=== PATIENT | female | born 1960 | race Caucasian/White ===

== ENCOUNTER 2024-08-12 12:16 | Outpatient (CLI) | payer OTHER, SELFPAY ==
[2024-08-12 18:33] LABS: Basophils # 0.1 K/mm3 (0-0.2); Basophils % 1.5 % (0.1-2.0); Eosinophils # 0.1 Kmm3 (0.0-0.4); Eosinophils % 2.3 % (0.1-12.0); Hematocrit 47.2 % (37.0-47.0); Immature Granulocytes # 0.03 10^3uL; Immature Granulocytes % 0.6 %; Lymphocytes % 19.3 % (10-50); Mean Corpuscular HGB Conc 31.8 g/dL (31.8-35.4); Mean Corpuscular Volume 94.4 fl (81-99); Mean Platelet Volume 10.9 fl (7.4-10.4); Monocytes # 0.4 K/mm3 (0.1-1.0); Monocytes % 7.9 % (1.7-9.3); Neutrophils # 3.6 K/mm3 (1.8-7.8); Neutrophils % 68.4 % (37.0-80.0); Nucleated Red Blood Cells # 0 10^3/uL; Nucleated Red Blood Cells % 0 %; Platelet Count 231 K/mm3 (142-424); Red Cell Distribution Width 12.5 % (11.5-17.5); Red Cell Distribution Width-SD 43.7 fL; White Blood Count 5.2 K/mm3 (4.8-10.8)
[2024-08-12 19:43] LABS: Alanine Aminotransferase 35 U/L (12-78); Albumin Level 4.3 g/dl (3.5-5.0); Albumin/Globulin Ratio 1.5 (1.1-1.8); Alkaline Phosphatase 65 U/L (38-126); Anion Gap 8.5 mEq/L (5-15); Aspartate Amino Transferase 36 U/L (14-36); Blood Urea Nitrogen 11 mg/dl (7-17); Calcium 9.6 mg/dl (8.4-10.2); Carbon Dioxide 28 mmol/L (22.0-30.0); Chloride 108 mmol/L (98-107); Chol/HDL Ratio 6.7 (1-3.5); Cholesterol 315 mg/dl (140-200); Creatinine,Urine Random 41 mg/dL (Not Estab.); Estimated Glomerular Filt Rate 72 ml/min (>60); GFR (African American) 87 ML/MIN (>60); Globulin 2.8 g/dL (1.3-3.2); Glucose 118 mg/dl (74-100); HDL Cholesterol 47 mg/dl (40-60); Potassium 5.5 mmoL/L (3.5-5.1); Sodium 139 mmol/L (136-145); Total Protein,Serum 7.1 g/dl (6.3-8.2); Triglycerides 140 mg/dl (30-150); VLDL Cholesterol 28 mg/dL (0-40)
[2024-08-12 19:49] LABS: Microalbumin < 6.000 mg/L (0-16.7)
[2024-08-12 19:58] LABS: Free T4 (Free Thyroxine) 1.87 ng/dl (0.78-2.19)
[2024-08-12 20:01] LABS: Direct LDL Cholesterol 223.86 mg/dL (100-129)
[2024-08-12 20:08] LABS: 25-OH Vitamin D, Total 35.7 ng/mL (30-100)
[2024-08-12 20:21] LABS: Thyroid Stimulating Hormone 0.55 uIU/mL (0.465-4.68)
[2024-08-12 20:26] LABS: HIV Combo NEGATIVE (Negative)
[2024-08-12 20:34] LABS: Hepatitis C Ab Qual. W/ RFX NEGATIVE (Negative)
[2024-08-12 20:43] LABS: Vitamin B12 402 pg/mL (239-931)
[2024-08-12 21:07] LABS: Hemoglobin A1C 5.7 % (4.0-6.0)
--- OUTSIDE RECORDS SUMMARY | 2024-08-13 10:39 | XMS_ITS | Encounter Summary ---
Author Organization [place] [address] Care Team Providers Care Citrus Peeler Name Role Phone Ermelinda Petr Rashid Primary Care Provider + [phone] Ruth Haque MD Unavailable Unavailable Raza Rowe MD Primary Care Provider Unavaila Parisa Delacruz APRN Primary Care Provider [phone],LD Unavailable UnavailAliya Myers RN Unavailable Unavailable Encounter Details Date Type Department Care Team (Latest Contact Info) Description 09/06/2012 Pre-Imaging Procedure Adult Med [address] [place], [place] [id number] Sabine Pickering, MATTHEW Hepatitis (Primary Dx) Social History Tobacco Use Types Packs/Day Years Used Date Smoking Tobacco: Never Smokeless Tobacco: Never Alcohol Use Standard Drinks/Week Comments No 0 (1 standard drink = 0.6 oz pur e alcohol) occ Sexually Active Control Partners Comments Yes Male Comments No Sex and Gender Information Value Date Recorded Sex Assigned at Not on file Legal Sex Female 3:35 PM EDT Gender Identity Not on file Sexual Orientation Not on file documented as of this encounter Plan of Treatment Not on file documented as of this encounter Results * PT / INR (09/11/2012 6:45 AM EDT) PT 10.5 9.7 - 12.3 second(s) [facility] INR 0.95 0.88 - 1.12 [facility] Comment: Level of Therapy Indications Target INR Range Standard Dose Treatment and prophylaxis of venous 2.0 - 3.0 thrombosis, pulmonary embolism High Dose High risk patients with mechanical 2.5 - 3.5 heart valves Blood specimen (specimen) UPPER LIMB STRUCTURE / Unknown 09/11/2012 6:45 AM EDT 09/11/2012 7:04 AM EDT us Attblake Garcia MD HEMATOLOGY ORDERABLES Final R esult Performing Organization Address City/[facility] Co de Phone Number [facility] [address] [place] [address] * CBC (09/11/2012 6:45 AM EDT) [facility] WBC 5.5 3.8 - 10.8 x10(3)/mcL [facility] RBC 4.92 3.80 - 5.10 x10(6)/mcL [facility] Hgb 15.0 11.7 - 15.5 gm/dL [facility] Hct 43.8 35.0 - 45.0 % [facility] MCV 89.2 80.0 - 100.0 fL [facility] MCH 30.6 27.0 - 33.0 pg [facility] MCHC 34.3 32.0 - 36.0 gm/dL [facility] RDW 11.6 11.0 - 15.0 % [facility] Platelet 177 140 - 400 x10(3)/mcL [facility] MPV 9.9 7.5 - 11.5 fL [facility] Blood specimen (specimen) UPPER LIMB STRUCTURE / Unknown 09/11/2012 6:45 AM EDT 09/11/2012 7:04 AM EDT us Attblake Garcia MD HEMATOLOGY ORDERABLES Final R esult Performing Organization Address City/[facility]/ZIP Co de Phone Number [facility] [address] [place] [address] documented in this encounter Visit Diagnoses Diagnosis Hepatitis- Primary Hepatitis, unspecified documented in this encounter Additional Health Concerns Infection Onset Date Last Indicated Resolved Time COVID-19 08/11/2020 08/17/2020 09/16/2020 10:1 2 PM EDT documented as of this encounter Care Teams Citrus Peeler Relationship Specialty Start Date End Date Petr Wadsworth DO [address] [place] [address] [address] [place] [address] PCP - General 07/06/10 08/12/14 Raza Rowe MD [address] [place] [address] [place] [phone] PCP - General Internal Medicine 07/23/15 8 Parisa Stearns [place] [address] [place] [address] PCP - General Nurse Practitioner-Family 11/24/17 Ruth Haque MD [address] [place] [address] Internal Medicine-Gastroenterology 08/15/[address],LD Dietitian 05/09/19 08/20/19 Aliya Green, RN Urinalysis Technician Registered Nurse 08/24/20 08/24/20 documented as of this encounter
--- OUTSIDE RECORDS SUMMARY | 2024-08-13 10:39 | XMS_ITS | Clinical Summary ---
Author Organization [facility] Address [address] [place] [address] Phone Care Team Providers Care Assistant Professor Sculpture Name Role Phone Ruth Haque MD Unavailable Unavailable Parisa Stearns APRN Primary Care Provider [phone] Allergies Active Allergy Reactions Criticality Noted Date Comments Penicillins 05/24/2010 Medications aspirin (ASPIRIN) 81 mg Oral Tablet, ChewableIndication s:Hyperlipidemia, unspecified hyperlipidemia type Take 1 Tab by mouth daily. 90 Tab 3 05/10/19 20 Active Additional Information Patient not taking.Reported on 06/09/2023 Pitavastatin (LIVALO) 2 mg Oral TabletIndications: Statin intolerance Take 2 mg by mouth daily. 90 Tab 3 05/15/19 20 Active Additional Information Patient not taking.Reported on 08/24/2020 acetaminophen 325 mg Oral Tab Take 2 Tabs by mouth every 4 hours as needed for Fever or Headaches. 08/22/19 21 Active Additional Information Patient not taking.Reported on 08/24/2020 ergocalciferol (DRISDOL) 1,250 mcg (50,000 unit) Oral CapsuleIndications :Vitamin D deficiency TAKE 1 CAPSULE BY MOUTH ONCE A WEEK 12 Capsule 2 09/18/19 24 Active LEVOthyroxine (SYNTHROID) 125 mcg Oral TabletIndications: Hypothyroidism (acquired) Take 1 Tablet by mouth daily. 30 Tablet 06/20/19 25 Active Active Problems Patient Care Coordination No te Formatting of this note migh t be different from the original. Care gap audit completed by Aaliyah Ware RN on 10/20/2020. Problem Noted Date Diagnosed Date Pneumonia due to COVID-19 virus 08/16/2020 Hyponatremia 08/16/2020 Renal insufficiency 08/16/2020 Acute respiratory failure with hypoxia Type 2 diabetes mellitus with hyperlipidemia Overview (08/24/2020): Lab Results Component Value Date HGBA1C 6.7 (H) 08/15/2020 HGBA1C 6.5 (H) 08/02/2019 HGBA1C 6.5 (H) 05/09/2019 New onset. Try diet control first. On ACEi, Statin and ASA for risk reduction Need IRIS and MICRO [place] cardiac risk 10-20% in next 10 years 05/10/2019 Overview (05/10/2019): Encouraged cardiovascular screening. Start ASA, statin for risk reduction. bp and bs management Weight loss. Vitamin D deficiency 11/24/2017 Overview (11/24/2017): Restarted replacement. Essential hypertension 08/04/2015 Overview (05/07/2019): No chest pain, shortness of breath, palpitations or edema. Dyspareunia in female 05/15/2015 Vaginal atrophy 05/15/2015 Abnormal liver enzymes 06/14/2012 АЛЕКСАНДР positive 06/14/2012 Overview (11/24/2017): Incidental finding in 2012. No complaints of joint pain, swelling. Hypothyroidism 11/17/2011 Overview (05/10/2019): +TPO. Stable on synthroid Hyperlipidemia 05/24/2010 Overview (05/10/2019): Restart statin Allergic rhinitis 05/24/2010 Resolved Problems Problem Noted Date Diagnosed Date Resolved Date Cervical polyp 02/11/2014 05/15/2015 Hepatitis 08/15/2012 11/24/2017 Encounters Date Type Department Care Team Description 06/18/2024 [place]ill [place] [address] [place] [phone] Parisa Stearns APRN Medication Refill 06/18/2024 Refill [place] [address] [place] [phone] DarynParisa dumont, HYDROCHLORIC MANUFACTURING SUPERVISOR Medication Refill from Last 3 Months Immunizations Immunization Administration Dates Next Due Hep A/Hep B 08/15/2012 Hepatitis A, Adult 11/24/2017 Hepatitis B, Unspecified Formulation 01/28/2013, 10/01/2012 Tdap 11/17/2011,11/17/2011 Surgical History Surgery Date Site/Laterality Comments SECTION BREAST BIOPSY Medical History Medical History Date Comments Thyroid disease Hyperlipidemia Family History Medical History Relation Name Comments Diabetes Brother 1 Kidney Disease Brother 1 High Blood Pressure Brother 2 Other Brother 2 Sudden (s troke or heart attack) Diabetes Brother 3 Type 1 No Known Problems Daughter Heart Failure Father CHF. Cancer Mother non hodgens Heart Disease Mother CABG Diabetes Paternal Grandmother No Known Problems Son Relation Name Status Comments Brother 1 Brother 2 Brother 3 Alive Daughter Alive Father Maternal Grandfather Maternal Grandmother Mother Paternal Grandfather Paternal Grandmother Son Alive Social History Tobacco Use Types Packs/Day Years Used Date Smoking Tobacco: Never Smokeless Tobacco: Never Alcohol Use Standard Drinks/Week Comments No 0 (1 standard drink = 0.6 oz pur e alcohol) every couple months PHQ-2 Answer Date Recorded PHQ-2 Score 0 07/19/2018 Sexually Active Control Partners Comments Yes Male Comments No Sex and Gender Information Value Date Recorded Sex Assigned at Not on file Legal Sex Female 3:35 PM EDT Gender Identity Not on file Sexual Orientation Not on file Obstetrics History Para Term AB IAB SAB Ectopic Multiple Livin g Live Births 2 2 Date Outcome GA Total Labor Labor/2nd/3rd Weight Sex Type Anes PTL Viviana A1 A5 Name Clin Para Vag-Spo nt Para CS-Unsp ec Last Filed Vital Signs Vital Sign Reading Time Taken Comments Blood Pressure 120/78 06/09/2023 9:11 AM EDT Pulse 99 06/09/2023 9:11 AM EDT Temperature 36.6 C (97.9 F) 06/09/2023 9:11 AM EDT Respiratory Rate 18 06/09/2023 9:11 AM EDT Oxygen Saturation 100% 06/09/2023 9:11 AM EDT Inhaled Oxygen Concentration - - Weight 83.9 kg (185 lb) 06/09/2023 9:11 AM EDT Height 162.6 cm (5' 4 ) 08/15/2020 11:24 PM EDT Body Mass Index 31.76 08/15/2020 11:24 PM EDT Plan of Treatment Health Maintenance Due Date Last Done Comments Annual Wellness Exam 10/31/1962 Diabetic Eye Exam 10/31/1977 Pneumococcal Vaccine 50+ (1 of 2 - PCV) 10/31/1978 HPV/Pap Cotest 10/31/1989 Cologuard 10/31/2004 FIT 10/31/2004 Sigmoidoscopy 10/31/2004 Virtual Colonography 10/31/2004 Zoster (1 of 2) 10/31/2009 Microalbuminuria 07/15/2016 07/16/2015 Cervical Cancer Screening 05/19/2019 Pap Smear 05/19/2019 05/18/2016, 04/27, 02/11/2014, Additional history exists Breast Cancer Screening 03/30/2020 03/30/19 19, 05/15/2015 (Postponed) Lipids 08/01/2020 08/02/2019, 04/27, 11/16/2017, Additional history exists Hemoglobin A1c 02/14/2021 08/15/2020, 0606/2019, 05/09/2019, Additional history exists DTaP/TDaP/Td (3 - Td or Tdap) 11/16/2021, 11/17/2011, 05/03/1996 COVID-19 Vaccine (1 - 2023-2 5 season) 2023 Influenza Vaccine (Season Ended) 2024 11/09/2015 (Declined) Colon Cancer Screening 05/14/2025 Colonoscopy 05/14/2025 05/15/2015 (Prev iously completed) Hepatitis C Screening Completed 11/21/2011 Hepatitis B Vaccine Completed 01/28/2013, 10/01/2012, 08/15/2012 Meningococcal B Vaccine Aged Out No l onger eligible based on patient's age to complete this topic Goals Goal Patient Goal Type Associated Problems Recent Progress Patient-Stated? Author Blood Pressure < 140/90 Blood Pressure 120/78(2023 9:11 AM EDT) No Anita Aj CCMA Maintain a healthy diet, exercise regularly and maintain an ideal body weight General No Anita Aj CCMA BMI (Calculated) < 30 General 31.5(08/16/19 11:24 PM EDT) No Parisa Stearns APRN HEMOGLOBIN A1C < 7.0 Result Component 6.7( 7:36 PM EDT) No Parisa Stearns APRN Procedures Procedure Name Priority Date/Time Associated Diagnosis Comments HEMOGLOBIN A1C Routine 08/15/2020 7:36 PM EDT LIPID SCREEN Routine 08/02/2019 9:18 AM EDT Hyperlipidemia, unspecified hyperlipidemia type MM MAMMO DIGITAL SCREENING W CAD BILAT Routine 03/30/2018 11:15 AM EST Screening mammogram, encounter for AERIAL PHOTOGRAPH INTERPRETER CYTOLOGY REPORT Routine 05/18/2016 8 :37 AM EDT MICROALBUMIN/CREATI NINE RATIO URINE Routine 07/16/2015 10:08 AM EDT Essential hypertension ACUTE HEPATITIS PANEL Routine 11/21/2011 1:54 PM EDT Other abnormal blood chemistry from Last 3 Months or Most Recently Relevant to Health Maintenance Results * (ABNORMAL) HEMOGLOBIN A1C (08/15/2020 7:36 PM EDT) Hgb A1C 6.7(H) 4.2 - 5.6 % 08/16/2020 12:11 PM EDT PREFERRED [facility] [employer] Est. Avg Glucose 146 mg/dL 08/16/2020 12:11 PM EDT PREFERRED [facility] [employer] Blood VENOUS BLOOD / Unknown Venipuncture / Unknown 08/15/2020 7:36 PM EDT 08/15/2020 7:41 PM EDT Narrative [facility]REF[facility]ED [facility] - 08/16/2020 12:11 PM EDT REFERENCE RANGE: Normal: 4.0-5.6% Pre-diabetes: 5.7-6.4% Provisional diagnosis of diabetes: >6.4% Hgb F>10% and anything which shortens red cell survival, such as hemolytic anemia, or unstable hemoglobin variants such as HbSS, HbSC, or HbCC, will lower the HbA1c value associated with a given level of glycemic control. Lebron Arias I, DO CHEMISTRY ORDERABLES Fin al Result PREFERRED [facility] [address] [facility] , [place] [address] * (ABNORMAL) LIPID SCREEN (08/02/2019 9:18 AM EDT) Cholesterol 271(H) <200 mg/dL 08/02/2019 5:14 PM EDT [facility] Comment: < 200 Desirable 200 - 239 Borderline High >= 240 High Triglyceride 287(H) <150 mg/dL 08/02/2019 5:14 PM EDT [facility] Comment: < 150 Normal 150 - 199 Borderline High 200 - 499 High >= 500 Very High HDL 44 >=40 mg/dL 08/02/2019 5:14 PM EDT [facility] Comment: > 60 Optimal 40 - 60 Acceptable < 40 Low LDL Calculated 170(H) <100 mg/dL 08/02/2019 5:14 PM EDT [facility] Comment: < 100 Optimal 100 - 129 Near or above optimal 130 - 159 Borderline High 160 - 189 High >= 190 Very High Non-HDL-C Calculated 227(H) <=129 mg/dL 08/02/2019 5:14 PM EDT [facility] Comment: <130 Desirable 130-159 Above Desirable 160-189 Borderline High 190-219 High >= 220 Very High Fasting Specimen? Yes None 020 5:14 PM EDT [facility] Blood VENOUS BLOOD / Unknown Venipuncture / Unknown 08/02/2019 9:18 AM EDT 08/02/2019 9:22 AM EDT Parisa Stearns HYDROCHLORIC MANUFACTURING SUPERVISOR CHEMISTRY ORDERABLES Final Result [facility]REFERRED [facility] [employer] [address] [facility] , [place] [address] * MM MAMMO DIGITAL SCREENING W CAD BILAT (03/30/2018 11:15 AM EST) Anatomical Region Laterality Modality Breast Bilateral Mammography 03/30/2018 11:4 4 AM EST Impressions 03/30/2018 11:44 AM EST Negative (QDS-[id number]-2) ~ RECOMMENDATION: Routine screening mammogram in 1 year. ~ DISCLAIMER * Any patient with a palpable abnormality, unexplained by breast imaging, should be managed on clinical basis by the attending physician. * Breast imaging has a false negative rate of 15%. * The patient was notified by mail of the results of this examination. *The patient's information was entered into a reminder system with a target due date for the next mammogram. The mammogram was reviewed by a Radiologist and CAD. Narrative 03/30/2018 11:44 AM EST Procedure:MM MAMMO DIGITAL SCREENING W CAD BILAT ~ Reason for exam: screening, asymptomatic. Z12.31-Encounter for screening mammogram for malignant neoplasm of [id number]-BOR-60-CM ~ MM MAMMO DIG SCREEN CAD BILAT Bilateral CC and MLO view(s) were taken. There are scattered fibroglandular densities. Prior study comparison: Compared with prior studies the most recent being : No prior studies. Minor asymmetry in breast architecture without discrete mass or architectural distortion. No suspicious calcifications. ~ Procedure Note Nathan Javier MD - 03/30/2018 Procedure:MM MAMMO DIGITAL SCREENING W CAD BILAT ~ Reason for exam: screening, asymptomatic. Z12.31-Encounter for screening mammogram for malignant neoplasm of [id number]-DSE-48-CM ~ MM MAMMO DIG SCREEN CAD BILAT Bilateral CC and MLO view(s) were taken. There are scattered fibroglandular densities. Prior study comparison: Compared with prior studies the most recentbeing : No prior studies. Minor asymmetry in breast architecture without discrete mass or architectural distortion. No suspicious calcifications. ~ IMPRESSION: Negative (XIF-Doapeuud-2) ~ RECOMMENDATION: Routine screening mammogram in 1 year. ~ DISCLAIMER * Any patient with a palpable abnormality, unexplained by breast imaging, should be managed on clinical basis by the attending physician. * Breast imaging has a false negative rate of 15%. * The patient was notified by mail of the results of this examination. *The patient's information was entered into a reminder system with atarget due date for the next mammogram. The mammogram was reviewed by a Radiologist and CAD. Cynthia Aleman MD IMG MAMMOGRAPHY O RDERABLES Final Result * AERIAL PHOTOGRAPH INTERPRETER CYTOLOGY REPORT (05/18/2016 8:37 AM EDT) Club Room Attendant Cytology Report PATIENT NAME:DANIELLE SUMMERS Club Room Attendant Cytology Report Accession Number Collected Date/Time Received Date/Time [id number] 05/18/16 08:37 EDT 05/18/16 18:37 EDT GY Specimen Source Specimen Vag/Cerv/Endocx?: Cerv/Endocerv Statement of Adequacy Satisfactory for Evaluation. Transformation Zone Present. Diagnosis NEGATIVE FOR INTRAEPITHELIAL LESION OR MALIGNANCY. Comment Note: Concurrent High-Risk HPV mRNA testing is NEGATIVE. The Pap Smear is a screening test that aids in the detection of cervical cancer and cancer precursors. Both false positive and false negative results can occur. The test should be used at regular intervals, and positive results should be confirmed before definitive therapy. Processed using the ThinPrep Plumber'S Helper automated cytology screening device ([employer]). Delivery Analyst: JARETH 05/23/2016 Completed by: SHY Gonzalez (Electronically signed by) 05/23/2016 [facility] 05/18/2016 8:37 AM EDT Cynthia Aleman MD PATHOLOGY ORDERAB LES Final Result [facility] [address] [place] [address] * MICROALBUMIN/CREATININE RATIO URINE (07/16/2015 10:08 AM EDT) Urine Microalb <12.0 mg/L [facility] Urine Creatinine 58.4 mg/dL [facility] Ur Microalb/Creat See Footnote 0 - 30 [facility] Comment:Unable to calculate due to value outside linearity. Urine specimen (specimen) UPPER LIMB STRUCTURE / Unknown 07/16/2015 10:08 AM EDT 07/16/2015 3:54 PM EDT Payton NIETO URINE ORDERABLES Final Result Performing Organization Address City/[facility]/ZIP Co de Phone Number [facility] [address] [place] [address] * ACUTE HEPATITIS PANEL (11/21/2011 1:54 PM EDT) Hep Bs Ag Negative Negative [facility] Hep B Core IgM Negative Negative [facility] Hep A IgM Negative Negative [facility] Hep C Ab Negative Negative [facility] Blood specimen (specimen) UPPER LIMB STRUCTURE / Unknown 11/21/2011 1:54 PM EDT 11/21/2011 6:43 PM EDT Petr Wadsworth DO CHEMISTRY ORDERABLES Edited Performing Organization Address City/[facility]/ZIP Co de Phone Number [facility] [address] [place] [address] from Last 3 Months or Most Recently Relevant to Health Maintenance Insurance [employer] BENEFITS SOLUTION Advance Directives For more information, please contact: [phone] * Full Code (Latest Code Status on File) Date Activated Date Inactivated Comments 08/16/2020 7:49 AM 08/21/2020 2:05 PM Care Teams Assistant Professor Sculpture Relationship Specialty Start Date End Date Parisa Steanrs APRN [address], [place] [address] PCP - General Nurse Practitioner-Family 11/24/17 Ruth Haque MD Internal Medicine-Gastroenterology 08/15/12
--- OUTSIDE RECORDS SUMMARY | 2024-08-13 10:39 | XMS_ITS | Encounter Summary ---
Author Organization [place] [address] Care Team Providers Care Traffic Warehouse Supervisor Name Role Phone Ermelinda Petr Gay Primary Care Provider [phone] Ruth Haque MD Unavailable Unavailable Raza Rowe MD Primary Care Provider Unavaila Parisa Delacruz APRN Primary Care Provider [phone],LD Unavailable UnavailAliya Myers RN Unavailable Unavailable Encounter Details Date Type Department Care Team (Latest Contact Info) Description 09/06/2012 Pre-Imaging Procedure Adult Med [address] [place], [place] [id number] Sabine Pickering, MATTHEW Hepatitis (Primary Dx) Social [...] on file documented as of this encounter Visit Diagnoses Diagnosis Hepatitis- Primary Hepatitis, unspecified documented in this encounter Additional Health Concerns Infection Onset Date Last Indicated Resolved Time COVID-19 08/11/2020 08/17/2020 09/16/2020 10:1 2 PM EDT documented as of this encounter Care Teams Traffic Warehouse Supervisor Relationship Specialty Start Date End Date Petr Wadsworth DO [address] [place] [address] [place] [phone] PCP - General 07/06/10 08/12/14 Raza Rowe MD [address] [place] [phone] PCP - General Internal Medicine 07/23/15 8 Parisa Stearns [place] [address] PCP - General Nurse Practitioner-Family 11/24/17 Ruth Haque MD [address] [place] [address] [place] [phone] Internal Medicine-Gastroenterology 08/15/[address],LD Dietitian 05/09/19 08/20/19 Aliya Green, RN Rig Welder Registered Nurse 08/24/20 08/24/20 documented as of this encounter
--- OUTSIDE RECORDS SUMMARY | 2024-08-13 10:39 | XMS_ITS | Encounter Summary ---
Author Organization [place] [address] Care Team Providers Care Process Equipment Operator Name Role Phone Ruth Haque MD Unavailable Unavailable Parisa Stearns APRN Primary Care Provider [phone] Reason for Visit * Reason Onset Date Comments Medication Refill 06/18/2024 Encounter Details Date Type Department Care Team (Late st Contact Info) Description 06/18/2024 Refill [facility] [place] [address] [place] [phone] Parisa Stearns APRN [address] [place] [address] Medication Refill Social History Tobacco Use Types Packs/Day Years [...] on file documented as of this encounter Functional Status * Is the person deaf or does he/she have serious difficulty hearing? Answer Date of Assessment Author No 05/07/2019 2:06 PM EDT Cathi Mujica CCMA * Is the person blind or does he/she have serious difficulty seeing even when wearing glasses? Answer Date of Assessment Author No 05/07/2019 2:06 PM EDT Cathi Mujica CCMA * Does this person have serious difficulty walking or climbing stairs? Answer Date of Assessment Author No 05/07/2019 2:06 PM EDT Cathi Mujica CCMA * Does this person have difficulty dressing or bathing? Answer Date of Assessment Author No 05/07/2019 2:06 PM EDT Cathi Mujica CCMA * Because of a physical, mental or emotional condition, does this person have difficulty doing errands alone such as visiting a doctor's office or shopping? Answer Date of Assessment Author No 05/07/2019 2:06 PM EDT Cathi Mujica CCMA documented as of this encounter Mental Status * Because of a physical, mental or emotional condition, does this person have serious difficulty concentrating, remembering or making decisions? Answer Entry Date Author No 05/07/2019 2:06 PM EDT Cathi Mujica CCMA documented in this encounter Plan of Treatment Not on file documented as of this encounter Goals Goal Patient Goal Type Associated Problems Recent Progress Patient-Stated? Author Blood Pressure < 140/90 Blood Pressure 120/78(2023 9:11 AM EDT) No Anita Aj CCMA Maintain a healthy diet, exercise regularly and maintain an ideal body weight General No Anita Aj CCMA BMI (Calculated) < 30 General 31.5(08/16/19 21 11:24 PM EDT) No Parisa Stearns APRN HEMOGLOBIN A1C < 7.0 Result Component 6.7( 7:36 PM EDT) No Parisa Stearns APRN documented as of this encounter Visit Diagnoses Diagnosis Vitamin D deficiency Unspecified vitamin D deficiency documented in this encounter Care Teams Process Equipment Operator Relationship Specialty Start Date End Date Parisa Stearns APRN [address] [place] [address] PCP - General Nurse Practitioner-Family 11/24/17 Ruth Haque MD Internal Medicine-Gastroenterology 08/15/12 documented as of this encounter
--- OUTSIDE RECORDS SUMMARY | 2024-08-13 10:39 | XMS_ITS | Encounter Summary ---
Author Organization [place] [address] Care Team Providers Care Pipefitter Helper Name Role Phone Ruth Haque MD Unavailable Unavailable Parisa Stearns APRN Primary Care Provider [phone] Reason for Visit * Reason Onset Date Comments Medication Refill 06/18/2024 Encounter Details Date Type Department Care Team (Late st Contact Info) Description 06/18/2024 Refill [facility] [place] [address] [place] [address] Parsia Stearns APRN [address] [place] [...] Author No 05/07/2019 2:06 PM EDT Cathi uMjica CCMA documented in this encounter Ordered Prescriptions Prescription Sig Dispense Quantity Refills Last Filled Start Date End Date LEVOthyroxine (SYNTHROID) 125 mcg Oral TabletIndications:H ypothyroidism (acquired) Take 1 Tablet by mouth daily. 30 Tablet 06/19/2024 documented in this encounter Plan of Treatment [...] as of this encounter Visit Diagnoses Diagnosis Hypothyroidism (acquired) Unspecified hypothyroidism documented in this encounter Discontinued Medications Medication Sig Discontinue Reason Start Date End Da te LEVOthyroxine (SYNTHROID) 125 mcg Oral TabletIndications:Hypoth yroidism (acquired) Take 1 Tablet by mouth daily. Reorder 09/18/2023 06/18/2024 documented as of this encounter Care Teams Pipefitter Helper Relationship Specialty Start Date End Date Parisa Stearns APRN [address] [place] [address] PCP - General Nurse Practitioner-Family 11/24/17 Ruth Haque MD Internal Medicine-Gastroenterology 08/15/12 documented as of this encounter
[2024-08-14 08:17] LABS: Hepatitis B Surface Antigen Negative (Negative)
== END 2024-08-12 23:59 | disposition home or self-care (01) ==
LOC: LAB.DROPOF 08-13 10:27
PROVIDERS: PCP Nurse Practitioner; Visit Provider Nurse Practitioner
DX: E03.9 Hypothyroidism, unspecified (principal); E78.5 Hyperlipidemia, unspecified; I10 Essential (primary) hypertension; Z13.0 Encounter for screening for diseases of the blood and blood-forming organs and certain disorders involving the immune mechanism
CPT/HCPCS: 80053; 80061; 82043; 82306; 82570; 82607; 83036; 84439; 84443; 85025; 86803; 87340; 87389

== ENCOUNTER 2024-09-11 13:00 | Outpatient (CLI) | payer OTHER, SELFPAY ==
[2024-09-11 14:24] LABS: Alanine Aminotransferase 34 U/L (12-78); Albumin Level 4.5 g/dl (3.5-5.0); Albumin/Globulin Ratio 1.5 (1.1-1.8); Alkaline Phosphatase 69 U/L (38-126); Anion Gap 15.2 mEq/L (5-15); Aspartate Amino Transferase 36 U/L (14-36); Bilirubin,Total 0.9 mg/dl (0.2-1.3); Calcium 9.4 mg/dl (8.4-10.2); Carbon Dioxide 28 mmol/L (22.0-30.0); Chloride 102 mmol/L (98-107); Globulin 3.0 g/dL (1.3-3.2); Glucose 120 mg/dl (74-100); Potassium 5.2 mmoL/L (3.5-5.1); Sodium 140 mmol/L (136-145); Total Protein,Serum 7.5 g/dl (6.3-8.2)
[2024-09-11 14:25] LABS: Blood Urea Nitrogen 10 mg/dl (7-17); Creatinine,Serum 0.80 mg/dl (0.52-1.04); Estimated Glomerular Filt Rate 72 ml/min (>60); GFR (African American) 87 ML/MIN (>60)
--- OUTSIDE RECORDS SUMMARY | 2024-09-12 10:20 | XMS_ITS | Clinical Summary ---
Author Organization [facility] Address [address] [place] [address] Phone Care Team Providers Care Drywall Carrier Name Role Phone Ruth Haque MD Unavailable Unavailable Parisa Stearns APRN Primary Care Provider [phone] Allergies Active Allergy Reactions Criticality Noted Date [...] for risk reduction Need IRIS and MICRO Pros[place]ity cardiac risk 10-20% in next 10 years [...] Encounters Date Type Department Care Team Description 09/04/2024 Patient Outreach [facility]P [place] [address] [place] [address] Daryn, Parisa, BENEFITS SALES CONSULTANT Central Order Completion Outreach (Mammo) 06/18/2024 Refill [place]P [place] [address] [place] [address] Senath, Parisa, BENEFITS SALES CONSULTANT Medication Refill 06/18/2024 Refill SEP [place] [address] [place], [place] [address] Senath, Parisa, BENEFITS SALES CONSULTANT Medication Refill from Last 3 Months Immunizations [...] Colonography 10/31/2004 Zoster (1 of 2) 10/31/2009 Kidney Health: uACR 07/15/2016 07/16/2015 Cervical Cancer Screening 05/19/2019 Pap Smear 05/19/2019 05/18/2016, 04/27, 02/11/2014, Additional history exists Breast Cancer Screening 03/30/2020 03/30/19 19, 05/15/2015 (Postponed) Lipids 08/01/2020 08/02/2019, 04/27, 11/16/2017, Additional history exists Hemoglobin A1c 02/14/2021 08/15/2020, 06/06/2019, 05/09/2019, Additional history exists Kidney Health: eGFR 08/20/2021 08/20/2020, 08/19/2020, 08/18/2020, Additional history exists DTaP/TDaP/Td (3 - Td or Tdap) 11/16/2021 11/17/2011, 11/17/2011, 05/03/1996 COVID-19 Vaccine ( season) 2023 Influenza Vaccine (#1) 2024 11/09/2015 (Declin ed) Colon Cancer Screening 05/14/2025 Colonoscopy 05/14/2025 05/15/2015 [...] Procedure Name Priority Date/Time Associated Diagnosis Comments COMPREHENSIVE METABOLIC PANEL Timed 08/20/2020 6:14 AM EDT HEMOGLOBIN A1C Routine 08/15/2020 7:36 PM EDT LIPID SCREEN Routine 08/02/2019 9:18 AM EDT Hyperlipidemia, unspecified hyperlipidemia type MM MAMMO DIGITAL SCREENING W CAD BILAT Routine 03/30/2018 11:15 AM EST Screening mammogram, encounter for RECORDIST CYTOLOGY REPORT Routine 05/18/2016 8 :37 AM EDT MICROALBUMIN/CREATINI NE RATIO URINE Routine 07/16/2015 10:08 AM EDT Essential hypertension ACUTE HEPATITIS PANEL Routine 11/21/2011 1:54 PM EDT Other abnormal blood chemistry from Last 3 Months or Most Recently Relevant to Health Maintenance Results * (ABNORMAL) COMPREHENSIVE METABOLIC PANEL (08/20/2020 6:14 AM EDT) [facility] Sodium 140 136 - 145 mmol/L 08/20/2020 7:01 AM [facility] Potassium 4.0 3.5 - 5.0 mmol/L 08/20/2020 7:01 AM [facility] Chloride 102 98 - 107 mmol/L 08/20/2020 7:01 AM [facility] Total CO2 29 22 - 29 mmol/L 08/20/2020 7:01 AM [facility] Anion Gap 9 7 - 16 mmol/L 08/20/2020 7:01 AM [facility] Calcium 8.6(L) 8.8 - 10.4 mg/dL 08/20/2020 7:01 AM [facility] Glucose Lvl 116(H) 82 - 100 mg/dL 08/20/2020 7:01 AM [facility] BUN 18 8 - 23 mg/dL 08/20/2020 7:01 AM [facility] Creatinine 0.81 0.51 - 1.30 mg/dL 08/20/2020 7:01 AM [facility] Albumin 3.0(L) 3.2 - 4.6 gm/dL 08/20/2020 7:01 AM [facility] Total Protein 6.0(L) 6.4 - 8.3 gm/dL 08/20/2020 7:01 AM [facility] Bili Total 0.9 0.1 - 1.3 mg/dL 08/20/2020 7:01 AM [facility] ALT 25 <=41 U/L 08/20/2020 7:01 AM [facility] AST 20 <=40 U/L 08/20/2020 7:01 AM [facility] Alk Phos 55 36 - 123 U/L 08/20/2020 7:01 AM [facility] GFR Afr Am 91 >=60 mL/min/1.7 3 m2 08/20/2020 7:01 AM [facility] GFR Non Afr Am 79 >=60 mL/min/1.7 3 m2 08/20/2020 7:01 AM EDT [facility] Comment: This estimated GFR was calculated using CKD-EPI equation which is modified based on ethnicity for Non Americans and Americans. Both results are reported since it is not always possible to determine the patient's ethnicity. This equation should only be used for individuals 18 and older. It has not been validated for use with the elderly (>70 years), women, or in some racial or ethnic subgroups, such as Hispanics. The equation will be less accurate in people with differences in nutritional status or muscle mass. Blood VENOUS BLOOD / Unknown Venipuncture / Unknown 08/20/2020 6:14 AM EDT 08/20/2020 6:39 AM EDT Lebron Mohr DO CHEMISTRY ORDERABLES Fin al Result [facility] [address] [place] [address] * (ABNORMAL) HEMOGLOBIN A1C (08/15/2020 7:36 PM EDT) Hgb A1C 6.7(H) 4.2 - 5.6 % 08/16/2020 12:11 PM EDT PREFERRED LAB [facility], [facility] Est. Avg Glucose 146 mg/dL 08/16/2020 12:11 PM EDT [employer], [facility] Blood VENOUS BLOOD / Unknown Venipuncture / Unknown 08/15/2020 7:36 PM EDT 08/15/2020 7:41 PM EDT Narrative PREFERRED [facility] - 08/16/2020 12:11 PM EDT REFERENCE RANGE: Normal: 4.0-5.6% Pre-diabetes: 5.7-6.4% Provisional diagnosis of diabetes: >6.4% Hgb F>10% and anything which shortens red cell survival, such as hemolytic anemia, or unstable hemoglobin variants such as HbSS, HbSC, or HbCC, will lower the HbA1c value associated with a given level of glycemic control. us Lebron Mohr DO CHEMISTRY ORDERABLES Fin al Result [facility]REFERRED [facility] [address] [place] [address] * (ABNORMAL) LIPID SCREEN (08/02/2019 9:18 AM EDT) Cholesterol 271(H) <200 mg/dL 08/02/2019 5:14 PM EDT [facility] Comment: < 200 Desirable 200 - 239 Borderline High >= 240 High Triglyceride 287(H) <150 mg/dL 08/02/2019 5:14 PM EDT [facility] Comment: < 150 Normal 150 - 199 Borderline High 200 - 499 High >= 500 Very High HDL 44 >=40 mg/dL 08/02/2019 5:14 PM EDT [facility] Comment: > 60 Optimal 40 - 60 Acceptable < 40 Low LDL Calculated 170(H) <100 mg/dL 08/02/2019 5:14 PM EDT [facility] Comment: < 100 Optimal 100 - 129 Near or above optimal 130 - 159 Borderline High 160 - 189 High >= 190 Very High Non-HDL-C Calculated 227(H) <=129 mg/dL 08/02/2019 5:14 PM EDT [facility] Comment: <130 Desirable 130-159 Above Desirable 160-189 Borderline High 190-219 High >= 220 Very High Fasting Specimen? Yes None 020 5:14 PM EDT [facility] Blood VENOUS BLOOD / Unknown Venipuncture / Unknown 08/02/2019 9:18 AM EDT 08/02/2019 9:22 AM EDT Parisa Stearns APRN CHEMISTRY ORDERABLES Final Result [facility] [address] [place] [address] * MM MAMMO DIGITAL SCREENING W CAD BILAT (03/30/2018 11:15 AM EST) Anatomical Region Laterality Modality Breast Bilateral Mammography 03/30/2018 11:4 4 AM EST Impressions 03/30/2018 11:44 AM EST Negative (SUB-[id number]) ~ RECOMMENDATION: Routine screening mammogram in 1 [...] for screening mammogram for malignant neoplasm of [id number] ~ MM MAMMO DIG SCREEN CAD BILAT [...] for screening mammogram for malignant neoplasm of [id number] ~ MM MAMMO DIG SCREEN CAD BILAT Bilateral CC and MLO view(s) were taken. There are scattered fibroglandular densities. Prior study comparison: Compared with prior studies the most recentbeing : No prior studies. Minor asymmetry in breast architecture without discrete mass or architectural distortion. No suspicious calcifications. ~ IMPRESSION: Negative (DOC-[id number]) ~ RECOMMENDATION: Routine screening mammogram in 1 [...] was reviewed by a Radiologist and CAD. us Cynthia Aleman MD IMG MAMMOGRAPHY O RDERABLES Final Result * RECORDIST CYTOLOGY REPORT (05/18/2016 8:37 AM EDT) Gang Drill Operator Cytology Report PATIENT NAME:DANIELLE SUMMERS Gang Drill Operator Cytology Report Accession Number Collected Date/Time Received Date/Time [id number] 05/18/16 08:37 EDT 05/18/16 18:37 EDT GY [...] confirmed before definitive therapy. Processed using the [employer]agom[employer]Prep Reinforcing Steel Worker Wire Mesh automated cytology screening device ([place] [employer]). Manufacturing Plant Technician: DT 05/23/2016 Completed by: SHY Gonzalez (Electronically signed by) 05/23/2016 [facility] 05/18/2016 8:37 AM EDT us Cynthia Aleman MD PATHOLOGY ORDERAB LES Final Result Performing Organization Address [facility] de Phone Number [facility] [address] [place] [address] * MICROALBUMIN/CREATININE RATIO URINE (07/16/2015 10:08 AM EDT) Urine Microalb <12.0 mg/L [facility] Urine Creatinine 58.4 mg/dL [facility] Ur Microalb/Creat See Footnote 0 - 30 [facility] Comment:Unable to calculate due to value outside linearity. Urine specimen (specimen) UPPER LIMB STRUCTURE / Unknown 07/16/2015 10:08 AM EDT 07/16/2015 3:54 PM EDT us Payton NIETO URINE ORDERABLES Final Result Performing Organization Address [facility] Co de Phone Number [facility] [address] [place] [phone] * ACUTE HEPATITIS PANEL (11/21/2011 1:54 PM EDT) Hep Bs Ag Negative Negative [facility] Hep B Core IgM Negative Negative [facility] Hep A IgM Negative Negative [facility] Hep C Ab Negative Negative [facility] Blood specimen (specimen) UPPER LIMB STRUCTURE / Unknown 11/21/2011 1:54 PM EDT 11/21/2011 6:43 PM EDT us Petr Wadsworth DO CHEMISTRY ORDERABLES Edited [facility] [address] [place] [address] from Last 3 Months or Most Recently Relevant to Health Maintenance Insurance [employer] BENEFITS SOLUTION Advance Directives For more information, please contact: [phone] * Full Code (Latest Code Status on File) Date Activated Date Inactivated Comments 08/16/2020 7:49 AM 08/21/2020 2:05 PM Care Teams Drywall Carrier Relationship Specialty Start Date End Date Parisa Stearns APRN [address] [place], [place] [id number] PCP - General Nurse Practitioner-Family 11/24/17 Ruth Haque MD Internal Medicine-Gastroenterology 08/15/12
--- OUTSIDE RECORDS SUMMARY | 2024-09-12 10:20 | XMS_ITS | Encounter Summary ---
Author Organization [place] [address] Care Team Providers Care Presser Automatic Name Role Phone Ermelinda Petr Gay Primary Care Provider + [phone] Ruth Haque MD Unavailable Unavailable Raza Rowe MD Primary Care Provider Unavaila Parisa Delacruz APRN Primary Care Provider [phone],LD Unavailable UnavailAliya Myers RN Unavailable Unavailable Encounter Details Date Type Department Care Team (Latest Contact Info) Description 09/06/2012 Pre-Imaging Procedure Adult Med [address] [place], [place] [id number] Sabine Pickering, MATTHEW Hepatitis (Primary Dx) Social [...] documented as of this encounter Care Teams Presser Automatic Relationship Specialty Start Date End Date Petr Wadsworth DO [address] [place] [address] [place] [phone] PCP - General 07/06/10 08/12/14 Raza Rowe MD [address] [place] [place] [phone] PCP - General Internal Medicine 07/23/15 8 Parisa Stearns [place] [address] PCP - General Nurse Practitioner-Family 11/24/17 Ruth Haque MD [address] [place] [address] [place] [phone] Internal Medicine-Gastroenterology 08/15/[address],LD Dietitian 05/09/19 08/20/19 Aliya Green, RN Power Originator Registered Nurse 08/24/20 08/24/20 documented as of this encounter
--- OUTSIDE RECORDS SUMMARY | 2024-09-12 10:20 | XMS_ITS | Encounter Summary ---
Author Organization [place] Address [place] [address] Care Team Providers Care Oracle Iam Consultant Name Role Phone Ermelinda Petr Rashid Primary Care Provider + [phone] Ruth Haque MD Unavailable Unavailable Raza Rowe MD Primary Care Provider Unavaila Parisa Delacruz APRN Primary Care Provider [phone],LD Unavailable UnavailAliya Myers RN Unavailable Unavailable Encounter Details Date Type Department Care Team (Latest Contact Info) Description 09/06/2012 Pre-Imaging Procedure Adult Med [address] [place], [place] [id number] Sabine Pickering, MATTHEW Hepatitis (Primary Dx) Social [...] EDT) PT 10.5 9.7 - 12.3 second(s) [facility] INR 0.95 0.88 - 1.12 [facility] Comment: Level of Therapy Indications Target INR Range Standard Dose Treatment and prophylaxis of venous 2.0 - 3.0 thrombosis, pulmonary embolism High Dose High risk patients with mechanical 2.5 - 3.5 heart valves Blood specimen (specimen) UPPER LIMB STRUCTURE / Unknown 09/11/2012 6:45 AM EDT 09/11/2012 7:04 AM EDT us Attblake Garcia MD HEMATOLOGY ORDERABLES Final R esult Performing Organization Address City/[facility] Co de Phone Number [facility] [address] [place] [address] * CBC (09/11/2012 6:45 AM EDT) [facility] WBC 5.5 3.8 - 10.8 x10(3)/mcL [facility] RBC 4.92 3.80 - 5.10 x10(6)/mcL [facility] Hgb 15.0 11.7 - 15.5 gm/dL [facility] Hct 43.8 35.0 - 45.0 % [facility] MCV 89.2 80.0 - 100.0 fL [facility] MCH 30.6 27.0 - 33.0 pg [facility] MCHC 34.3 32.0 - 36.0 gm/dL [facility] RDW 11.6 11.0 - 15.0 % [facility] Platelet 177 140 - 400 x10(3)/mcL [facility] MPV 9.9 7.5 - 11.5 fL [facility] Blood specimen (specimen) UPPER LIMB STRUCTURE / Unknown 09/11/2012 6:45 AM EDT 09/11/2012 7:04 AM EDT us Attblake Garcia MD HEMATOLOGY ORDERABLES Final R esult Performing Organization Address City/[facility]/ZIP Co de Phone Number [facility] [address] [place] [address] documented in this encounter Visit Diagnoses Diagnosis Hepatitis- Primary Hepatitis, unspecified documented in this encounter Additional Health Concerns Infection Onset Date Last Indicated Resolved Time COVID-19 08/11/2020 08/17/2020 09/16/2020 10:1 2 PM EDT documented as of this encounter Care Teams Oracle Iam Consultant Relationship Specialty Start Date End Date Petr Wadsworth DO [address] [place] [address] [address] [place] [address] PCP - General 07/06/10 08/12/14 Raza Rowe MD [address] [place] [address] [place] [phone] PCP - General Internal Medicine 07/23/15 8 Parisa Stearns [place] [address] [place] [address] PCP - General Nurse Practitioner-Family 11/24/17 Ruth Haque MD [address] [place] [phone] Internal Medicine-Gastroenterology 08/15/[address],LD Dietitian 05/09/19 08/20/19 Aliya Green, RN College Physics Instructor Registered Nurse 08/24/20 08/24/20 documented as of this encounter
--- OUTSIDE RECORDS SUMMARY | 2024-09-12 10:20 | XMS_ITS | Encounter Summary ---
Author Organization [place] [address] Care Team Providers Care Analysis Specialist Name Role Phone Ruth Haque MD Unavailable Unavailable Parisa Stearns ONLINE ADVERTISING ANALYST Primary Care Provider [phone] Reason for Visit * Reason Onset Date Comments Central Order Completion Outreach 09/04/2024 Mammo Encounter Details Date Type Department Care Team (Late st Contact Info) Description 09/04/2024 Patient Outreach SEP [facility] [address] [place] [address] Parisa Stearns APRN [address] [place] [address] Central Order Completion Outreach (Mammo) Social History Tobacco Use Types Packs/Day Years [...] Cathi Mujica CCMA documented in this encounter Progress Notes * Kat Mckinney RN - 09/04/2024 8:49 AM EDT SEP Order Completion Outcome Tracking Contact Attempt:: First Mammogram Outcome:: Left Voicemail to Return Call at [phone], [employer] Message documented in this encounter Plan of Treatment [...] documented as of this encounter Visit Diagnoses Not on filedocumented in this encounter Care Teams Analysis Specialist Relationship Specialty Start Date End Date Parisa Stearns APRN [address] [place] [address] PCP - General Nurse Practitioner-Family 11/24/17 Ruth Haque MD Internal Medicine-Gastroenterology 08/15/12 documented as of this encounter
== END 2024-09-11 23:59 | disposition home or self-care (01) ==
LOC: LAB.DROPOF 09-12 10:16
PROVIDERS: PCP Nurse Practitioner; Visit Provider Nurse Practitioner
DX: I10 Essential (primary) hypertension (principal)
CPT/HCPCS: 80053

== ENCOUNTER 2024-10-17 10:29 | Outpatient (CLI) | payer OTHER, SELFPAY ==
[2024-10-17 19:55] LABS: Chloride 106 mmol/L (98-107); Potassium 5.1 mmoL/L (3.5-5.1); Sodium 139 mmol/L (136-145)
[2024-10-17 19:58] LABS: Anion Gap 12.1 mEq/L (5-15); Blood Urea Nitrogen 18 mg/dl (7-17); Calcium 9.6 mg/dl (8.4-10.2); Carbon Dioxide 26 mmol/L (22.0-30.0); Creatinine,Serum 0.80 mg/dl (0.52-1.04); Estimated Glomerular Filt Rate 72 ml/min (>60); GFR (African American) 87 ML/MIN (>60); Glucose 90 mg/dl (74-100)
--- OUTSIDE RECORDS SUMMARY | 2024-10-21 11:09 | XMS_ITS | Encounter Summary ---
Author Organization [place] [address] Care Team Providers Care Airport Control Operator Name Role Phone Ruth Haque MD Unavailable Unavailable Parisa Stearns SCOUTS Primary Care Provider [phone] Reason for Visit * Reason Onset Date Comments Central Order Completion Outreach 09/04/2024 Mammo Encounter Details Date Type Department Care Team (Late st Contact Info) Description 09/04/2024 Patient Outreach SEP [facility] [address] [place] [address] Parisa Stearns APRN [address] [place] [address] Central Order Completion Outreach (Mammo) Social History [...] documented in this encounter Progress Notes * Temi Echavarria RN - 09/20/2024 2:26 PM EDT SEP Order Completion Outcome Tracking Contact Attempt:: Final Mammogram Outcome:: Patient Declined Patient declined reason:: Not Interested (Pt is no longer with SEP-provider removed from chart) * Kat Mckinney RN - 09/04/2024 8:49 AM EDT SEP Order Completion Outcome Tracking Contact Attempt:: First Mammogram Outcome:: Left Voicemail to Return Call at [phone], [employer] Message documented in this encounter Plan of [...] HEMOGLOBIN A1C < 7.0 Result Component 6.7( 1 7:36 PM EDT) No Parisa Stearns APRN documented as of this encounter Visit Diagnoses Not on filedocumented in this encounter Care Teams Airport Control Operator Relationship Specialty Start Date End Date Parisa Stearns APRN [employer] [address] [place] [address] PCP - General Nurse Practitioner-Family 11/24/17 7/06/21 Ruth Haque MD Internal Medicine-Gastroenterology 08/15/12 documented as of this encounter
--- OUTSIDE RECORDS SUMMARY | 2024-10-21 11:09 | XMS_ITS | Clinical Summary ---
Author Organization [facility] Internal Medicine Address [address] [place] [address] Phone Care Team Providers Care Crisis Nurse Name Role Phone Ruth Haque MD Unavailable Unavailable Allergies Active Allergy Reactions Criticality Noted Date [...] insufficiency 08/16/2020 Acute respiratory failure with hypoxia 1 Type 2 diabetes mellitus with hyperlipidemia Overview (08/24/2020): Lab Results Component Value Date HGBA1C 6.7 (H) 08/15/2020 HGBA1C 6.5 (H) 08/02/2019 HGBA1C 6.5 (H) 05/09/2019 New onset. Try diet control first. On ACEi, Statin and ASA for risk reduction Need IRIS and MICRO Dannemora cardiac risk 10-20% in next 10 years [...] Care Team Description 09/04/2024 Patient Outreach SEP VBP [address] [place] [address] Parisa Stearns APRN Central Order Completion Outreach (Mammo) from Last 3 Months Immunizations Immunization Administration [...] Additional history exists Breast Cancer Screening 03/30/2020 03/30/19, 05/15/2015 (Postponed) Lipids 08/01/2020 08/02/2019, 04/27, 11/16/2017, Additional history exists Hemoglobin A1c 02/14/2021 08/15/2020, 06/0 06/2019, 05/09/2019, Additional history exists Kidney Health: eGFR 08/20/2021 08/20/2020, 08/19/2020, 08/18/2020, Additional history exists DTaP/TDaP/Td (3 - Td or Tdap) 11/16/2021 11/17/2011, 11/17/2011, 05/03/1996 COVID-19 Vaccine ( - 2023- season) 2023 Influenza Vaccine (#1) 2024 11/09/2015 [...] General 31.5(08/16/19 11:24 PM EDT) No Parisa Stearns, CASE FILLER HEMOGLOBIN A1C < 7.0 Result Component 6.7( [...] 11:15 AM EST Screening mammogram, encounter for FINAL FINISHER CYTOLOGY REPORT Routine 05/18/2016 8 :37 AM EDT MICROALBUMIN/CREATINI NE RATIO URINE Routine 07/16/2015 10:08 AM EDT Essential hypertension ACUTE HEPATITIS PANEL Routine 11/21/2011 1:54 PM EDT Other abnormal blood chemistry from Last 3 Months or Most Recently Relevant to Health Maintenance Results * (ABNORMAL) COMPREHENSIVE METABOLIC PANEL (08/20/2020 6:14 AM EDT) Sodium 140 136 - 145 mmol/L 08/20/2020 7:01 AM EDT [facility] Potassium 4.0 3.5 - 5.0 mmol/L 08/20/2020 7:01 AM EDT [facility] Chloride 102 98 - 107 mmol/L 08/20/2020 7:01 AM EDT [facility] Total CO2 29 22 - 29 mmol/L 08/20/2020 7:01 AM [facility] Anion Gap 9 7 - 16 mmol/L 08/20/2020 7:01 AM [facility] Calcium 8.6(L) 8.8 - 10.4 mg/dL 08/20/2020 7:01 AM [facility] Glucose Lvl 116(H) 82 - 100 mg/dL 08/20/2020 7:01 AM [facility] BUN 18 8 - 23 mg/dL 08/20/2020 7:01 AM [facility] Creatinine 0.81 0.51 - 1.30 mg/dL 08/20/2020 7:01 AM [facility] Albumin 3.0(L) 3.2 - 4.6 gm/dL 08/20/2020 7:01 AM [facility] Total Protein 6.0(L) 6.4 - 8.3 gm/dL 08/20/2020 7:01 AM [facility] Bili Total 0.9 0.1 - 1.3 mg/dL 08/20/2020 7:01 AM [facility] ALT 25 <=41 U/L 08/20/2020 7:01 AM [facility] AST 20 <=40 U/L 08/20/2020 7:01 AM [facility] Alk Phos 55 36 - 123 U/L 08/20/2020 7:01 AM [facility] GFR Afr Am 91 >=60 mL/min/1.7 3 m2 08/20/2020 7:01 AM [facility] GFR Non Afr Am 79 >=60 mL/min/1.7 3 m2 08/20/2020 7:01 AM [facility] Comment: This estimated GFR was calculated [...] AM EDT 08/20/2020 6:39 AM EDT Lebron Arias I DO CHEMISTRY ORDERABLES Fin al Result Performing Organization Address [facility] [place]/[facility] Co de Phone Number [address] [address] * (ABNORMAL) HEMOGLOBIN A1C (08/15/2020 7:36 PM EDT) Hgb A1C 6.7(H) 4.2 - 5.6 % 08/16/2020 12:11 PM EDT PREFERRED [facility] Est. Avg Glucose 146 mg/dL 08/16/2020 12:11 PM EDT [facility] Blood VENOUS BLOOD / Unknown Venipuncture / Unknown 08/15/2020 7:36 PM EDT 08/15/2020 7:41 PM EDT Narrative PREFERRED [facility] - 08/16/2020 12:11 PM EDT REFERENCE RANGE: Normal: 4.0-5.6% Pre-diabetes: 5.7-6.4% Provisional diagnosis of diabetes: >6.4% Hgb F>10% and anything which shortens red cell survival, such as hemolytic anemia, or unstable hemoglobin variants such as HbSS, HbSC, or HbCC, will lower the HbA1c value associated with a given level of glycemic control. us Lebron Arias I DO CHEMISTRY ORDERABLES Fin al Result Performing Organization Address [facility] Co de Phone Number [facility] [address] [facility] [address] , [place] [address] * (ABNORMAL) LIPID SCREEN (08/02/2019 9:18 AM EDT) Cholesterol 271(H) <200 mg/dL 08/02/2019 5:14 PM EDT [facility] Comment: < 200 Desirable 200 - 239 Borderline High >= 240 High Triglyceride 287(H) <150 mg/dL 08/02/2019 5:14 PM EDT [facility] Comment: < 150 Normal 150 - 199 Borderline High 200 - 499 High >= 500 Very High HDL 44 >=40 mg/dL 08/02/2019 5:14 PM EDT [facility] Comment: > 60 Optimal 40 - 60 Acceptable < 40 Low LDL Calculated 170(H) <100 mg/dL 08/02/2019 5:14 PM EDT [facility] Comment: < 100 Optimal 100 - 129 Near or above optimal 130 - 159 Borderline High 160 - 189 High >= 190 Very High Non-HDL-C Calculated 227(H) <=129 mg/dL 08/02/2019 5:14 PM EDT [facility] Comment: <130 Desirable 130-159 Above Desirable 160-189 Borderline High 190-219 High >= 220 Very High Fasting Specimen? Yes None 020 5:14 PM EDT [facility] VENOUS BLOOD / Unknown Venipuncture / Unknown 08/02/2019 9:18 AM EDT 08/02/2019 9:22 AM EDT Parisa Stearns CASE FILLER CHEMISTRY ORDERABLES Final Result [facility] [address] [facility] , [address] [place] [id number] * MM MAMMO DIGITAL SCREENING W CAD BILAT (03/30/2018 11:15 AM EST) Anatomical Region Laterality Modality Breast Bilateral Mammography 03/30/2018 11:4 4 AM EST Impressions 03/30/2018 11:44 AM EST Negative (GFC-Aicvgyoe-7) ~ RECOMMENDATION: Routine screening mammogram in 1 [...] for screening mammogram for malignant neoplasm of ptlqin-CNW-17-CM ~ MM MAMMO DIG SCREEN CAD BILAT [...] for screening mammogram for malignant neoplasm of vrufis-FAP-56-CM ~ MM MAMMO DIG SCREEN CAD BILAT Bilateral CC and MLO view(s) were taken. There are scattered fibroglandular densities. Prior study comparison: Compared with prior studies the most recentbeing : No prior studies. Minor asymmetry in breast architecture without discrete mass or architectural distortion. No suspicious calcifications. ~ IMPRESSION: Negative (UTE-Dziqklcn-1) ~ RECOMMENDATION: Routine screening mammogram in 1 [...] IMG MAMMOGRAPHY O RDERABLES Final Result * FINAL FINISHER CYTOLOGY REPORT (05/18/2016 8:37 AM EDT) Appointment Specialist Cytology Report PATIENT NAME:DANIELLE ANTONY Appointment Specialist Cytology Report Accession Number Collected Date/Time Received Date/Time [id number] 05/18/16 08:37 EDT 05/18/16 18:37 EDT GY [...] before definitive therapy. Processed using the [employer] Punch Operator automated cytology screening device (ReplySend). Loop Machine Operator: DT 05/23/2016 Completed by: SHY Gonzalez (Electronically signed by) 05/23/2016 [facility] 05/18/2016 8:37 AM EDT us Cynthia Aleman MD PATHOLOGY ORDERAB LES Final Result Performing Organization Address [facility] Co de Phone Number [facility] [address] [place] [address] * MICROALBUMIN/CREATININE RATIO URINE (07/16/2015 10:08 AM EDT) Pathologist [facility] Urine Microalb <12.0 mg/L [facility] Urine Creatinine 58.4 mg/dL [facility] Ur Microalb/Creat See Footnote 0 - 30 [facility] Comment:Unable to calculate due to value outside linearity. Urine specimen (specimen) UPPER LIMB STRUCTURE / Unknown 07/16/2015 10:08 AM EDT 07/16/2015 3:54 PM EDT us Payton NIETO URINE ORDERABLES Final Result Performing Organization Address City/[facility]/ZIP Co de Phone Number [facility] [address] [place] [address] * ACUTE HEPATITIS PANEL (11/21/2011 1:54 PM EDT) Hep Bs Ag Negative Negative [facility] Hep B Core IgM Negative Negative [facility] Hep A IgM Negative Negative [facility] Hep C Ab Negative Negative [facility] Blood specimen (specimen) UPPER LIMB STRUCTURE / Unknown 11/21/2011 1:54 PM EDT 11/21/2011 6:43 PM EDT us Petr Gay Ermelinda DO CHEMISTRY ORDERABLES Edited SE LAB [address] [place] [address] from Last 3 Months or Most Recently Relevant to Health Maintenance Insurance [employer] [id number] Advance Directives For more information, please contact: [phone] * Full Code (Latest Code Status on File) Date Activated Date Inactivated Comments 08/16/2020 7:49 AM 08/21/2020 2:05 PM Care Teams Crisis Nurse Relationship Specialty Start Date End Date Ruth Haque MD Internal Medicine-Gastroenterology 08/15/12
--- OUTSIDE RECORDS SUMMARY | 2024-10-21 11:09 | XMS_ITS | Encounter Summary ---
Author Organization [place] [address] Care Team Providers Care Venetian Blind Tape Cutter Name Role Phone Ermelinda Petr Rashid Primary Care Provider + [phone] Ruth Haque MD Unavailable Unavailable Raza Rowe MD Primary Care Provider Unavaila Parisa Delacruz APRN Primary Care Provider [phone],LD Unavailable UnavailAliya Myers RN Unavailable Unavailable Encounter Details Date Type Department Care Team (Latest Contact Info) Description 09/06/2012 Pre-Imaging Procedure Adult Med [address] [place], [place] [id number] Sabine Pickering, MATTHEW Hepatitis (Primary Dx) Social [...] EDT) PT 10.5 9.7 - 12.3 second(s) [facility] INR 0.95 0.88 - 1.12 [facility] Comment: Level of Therapy Indications Target INR Range Standard Dose Treatment and prophylaxis of venous 2.0 - 3.0 thrombosis, pulmonary embolism High Dose High risk patients with mechanical 2.5 - 3.5 heart valves Blood specimen (specimen) UPPER LIMB STRUCTURE / Unknown 09/11/2012 6:45 AM EDT 09/11/2012 7:04 AM EDT us Attblake Garcia MD HEMATOLOGY ORDERABLES Final R esult Performing Organization Address City/[facility] Co de Phone Number [facility] [address] [place] [address] * CBC (09/11/2012 6:45 AM EDT) [facility] WBC 5.5 3.8 - 10.8 x10(3)/mcL [facility] RBC 4.92 3.80 - 5.10 x10(6)/mcL [facility] Hgb 15.0 11.7 - 15.5 gm/dL [facility] Hct 43.8 35.0 - 45.0 % [facility] MCV 89.2 80.0 - 100.0 fL [facility] MCH 30.6 27.0 - 33.0 pg [facility] MCHC 34.3 32.0 - 36.0 gm/dL [facility] RDW 11.6 11.0 - 15.0 % [facility] Platelet 177 140 - 400 x10(3)/mcL [facility] MPV 9.9 7.5 - 11.5 fL [facility] Blood specimen (specimen) UPPER LIMB STRUCTURE / Unknown 09/11/2012 6:45 AM EDT 09/11/2012 7:04 AM EDT us Attblake Garcia MD HEMATOLOGY ORDERABLES Final R esult Performing Organization Address City/[facility]/ZIP Co de Phone Number [facility] [address] [place] [address] documented in this encounter Visit Diagnoses Diagnosis Hepatitis- Primary Hepatitis, unspecified documented in this encounter Additional Health Concerns Infection Onset Date Last Indicated Resolved Time COVID-19 08/11/2020 08/17/2020 09/16/2020 10:1 2 PM EDT documented as of this encounter Care Teams Venetian Blind Tape Cutter Relationship Specialty Start Date End Date Petr Wadsworth DO [address] [address] [address] [place] [address] PCP - General 07/06/10 08/12/14 Raza Rowe MD [address] [address] [address] [place] [address] PCP - General Internal Medicine 07/23/15 8 Parisa Stearn[place] [address] [place] [address] PCP - General Nurse Practitioner-Family 11/24/1708/28 Ruth Haque MD [address] [address] [address] [place] [address] Internal Medicine-Gastroenterology 08/15/[address],LD Dietitian 05/09/19 08/20/19 Aliya Green, RN Product Support Representative Registered Nurse 08/24/20 08/24/20 documented as of this encounter
--- OUTSIDE RECORDS SUMMARY | 2024-10-21 11:09 | XMS_ITS | Encounter Summary ---
Author Organization [place] [address] Care Team Providers Care Relaster Name Role Phone Ermelinda Petr Gay Primary Care Provider + [phone] Ruth Haque MD Unavailable Unavailable Raza Rowe MD Primary Care Provider Unavaila Parisa Delacruz APRN Primary Care Provider [phone],LD Unavailable UnavailAliya Myers RN Unavailable Unavailable Encounter Details Date Type Department Care Team (Latest Contact Info) Description 09/06/2012 Pre-Imaging Procedure Adult Med [address] [place], [place] [id number] Sabine Pickering, MATTHEW Hepatitis (Primary Dx) Social [...] documented as of this encounter Care Teams Relaster Relationship Specialty Start Date End Date Petr Wadsworth DO [address] [address] [address] [place] [address] PCP - General 07/06/10 08/12/14 Raza Rowe MD [address] [place] [phone] PCP - General Internal Medicine 07/23/15 Parisa Stearns [place] [address] [place] [address] PCP - General Nurse Practitioner-Family 11/24/1708/28 Ruth Haque MD [address] [place] [phone] Internal Medicine-Gastroenterology 08/15/[address],LD Dietitian 05/09/19 08/20/19 Aliya Green, RN Dining Room Host Registered Nurse 08/24/20 08/24/20 documented as of this encounter
== END 2024-10-17 23:59 ==
LOC: LAB.DROPOF 10-21 10:29
PROVIDERS: PCP Nurse Practitioner; Visit Provider Nurse Practitioner
DX: E11.9 Type 2 diabetes mellitus without complications (principal)
CPT/HCPCS: 80048

== ENCOUNTER 2024-12-24 10:24 | Outpatient (CLI) | payer MEDICARE, SELFPAY ==
[2024-12-24 16:01] LABS: Albumin Level 3.6 g/dl (3.5-5.0); Chloride 101 mmol/L (98-107)
[2024-12-24 16:02] LABS: Potassium 4.5 mmoL/L (3.5-5.1); Sodium 135 mmol/L (136-145)
[2024-12-24 16:04] LABS: Alanine Aminotransferase 42 U/L (12-78); Albumin/Globulin Ratio 0.9 (1.1-1.8); Alkaline Phosphatase 70 U/L (38-126); Anion Gap 8.5 mEq/L (5-15); Aspartate Amino Transferase 39 U/L (14-36); Bilirubin,Total 1.1 mg/dl (0.2-1.3); Blood Urea Nitrogen 16 mg/dl (7-17); Carbon Dioxide 30 mmol/L (22.0-30.0); Creatinine,Serum 0.80 mg/dl (0.52-1.04); Estimated Glomerular Filt Rate 72 ml/min (>60); GFR (African American) 87 ML/MIN (>60); Globulin 4.0 g/dL (1.3-3.2); Total Protein,Serum 7.6 g/dl (6.3-8.2); Triglycerides 217 mg/dl (30-150)
[2024-12-24 16:05] LABS: Calcium 9.2 mg/dl (8.4-10.2); Cholesterol 293 mg/dl (140-200); Glucose 103 mg/dl (74-100); HDL Cholesterol 46 mg/dl (40-60)
[2024-12-24 16:44] LABS: Free T4 (Free Thyroxine) 2.45 ng/dl (0.78-2.19)
[2024-12-24 17:00] LABS: Thyroid Stimulating Hormone < 0.02 uIU/mL (0.465-4.68)
[2024-12-24 20:59] LABS: Hemoglobin A1C 5.4 % (4.0-6.0)
--- OUTSIDE RECORDS SUMMARY | 2024-12-25 12:44 | XMS_ITS ---
Author Organization Unknown TREATMENT PLAN [facility] Start Date Provider Encounter for Check-up [id number] [facility]
--- OUTSIDE RECORDS SUMMARY | 2024-12-25 12:44 | XMS_ITS | Encounter Summary ---
Author Organization [place] [address] Care Team Providers Care Automotive Design Drafter Name Role Phone Ermelinda Petr Gay Primary Care Provider + [phone] Ruth Haque MD Unavailable Unavailable Raza Rowe MD Primary Care Provider Unavaila Parisa Delacruz APRN Primary Care Provider [phone],LD Unavailable UnavailAliya Myers RN Unavailable Unavailable Encounter Details Date Type Department Care Team (Latest Contact Info) Description 09/06/2012 Pre-Imaging Procedure Adult Med [address] [place], [place] [id number] Sabine Pickering, MATTHEW Hepatitis (Primary Dx) Social [...] documented as of this encounter Care Teams Automotive Design Drafter Relationship Specialty Start Date End Date Petr Wadsworth DO [address] [address] [address] [place] [address] PCP - General 07/06/10 08/12/14 Raza Rowe MD [address] [place] [phone] PCP - General Internal Medicine 07/23/15 Parisa Stearns [place] [place] [address] PCP - General Nurse Practitioner-Family 11/24/1708/28 Ruth Haque MD [address] [place] [phone] Internal Medicine-Gastroenterology 08/15/[address],LD Dietitian 05/09/19 08/20/19 Aliya Green, RN Generation Engineer Registered Nurse 08/24/20 08/24/20 documented as of this encounter
--- OUTSIDE RECORDS SUMMARY | 2024-12-25 12:44 | XMS_ITS | Encounter Summary ---
Author Organization [place] [address] Care Team Providers Care Dog Behaviorist Name Role Phone Ermelinda Petr Rashid Primary Care Provider + [phone] Ruth Haque MD Unavailable Unavailable Raza Rowe MD Primary Care Provider Unavaila Parisa Delacruz APRN Primary Care Provider [phone],LD Unavailable UnavailAliya Myers RN Unavailable Unavailable Encounter Details Date Type Department Care Team (Latest Contact Info) Description 09/06/2012 Pre-Imaging Procedure Adult Med [address] [place], [place] [phone] Sabine Pickering, MATTHEW Hepatitis (Primary Dx) Social [...] EDT) PT 10.5 9.7 - 12.3 second(s) [facility] INR 0.95 0.88 - 1.12 [facility] Comment: Level of Therapy Indications Target INR Range Standard Dose Treatment and prophylaxis of venous 2.0 - 3.0 thrombosis, pulmonary embolism High Dose High risk patients with mechanical 2.5 - 3.5 heart valves Blood specimen (specimen) UPPER LIMB STRUCTURE / Unknown 09/11/2012 6:45 AM EDT 09/11/2012 7:04 AM EDT us Attblake Garcia MD HEMATOLOGY ORDERABLES Final R esult Performing Organization Address City/[facility] Co de Phone Number [facility] 1 [place] [address] * CBC (09/11/2012 6:45 AM EDT) [facility] WBC 5.5 3.8 - 10.8 x10(3)/mcL [facility] RBC 4.92 3.80 - 5.10 x10(6)/mcL [facility] Hgb 15.0 11.7 - 15.5 gm/dL [facility] Hct 43.8 35.0 - 45.0 % [facility] MCV 89.2 80.0 - 100.0 fL [facility] MCH 30.6 27.0 - 33.0 pg [facility] MCHC 34.3 32.0 - 36.0 gm/dL [facility] RDW 11.6 11.0 - 15.0 % [facility] Platelet 177 140 - 400 x10(3)/mcL [facility] MPV 9.9 7.5 - 11.5 fL [facility] Blood specimen (specimen) UPPER LIMB STRUCTURE / Unknown 09/11/2012 6:45 AM EDT 09/11/2012 7:04 AM EDT us Attblake Garcia MD HEMATOLOGY ORDERABLES Final R esult Performing Organization Address City/[facility]/ZIP Co de Phone Number [facility] [address] [place] [address] documented in this encounter Visit Diagnoses Diagnosis Hepatitis- Primary Hepatitis, unspecified documented in this encounter Additional Health Concerns Infection Onset Date Last Indicated Resolved Time COVID-19 08/11/2020 08/17/2020 09/16/2020 10:1 2 PM EDT documented as of this encounter Care Teams Dog Behaviorist Relationship Specialty Start Date End Date Petr Wadsworth DO [address] [address] [address] [place] [address] PCP - General 07/06/10 08/12/14 Raza Rowe MD [address] [address] [address] [place] [address] PCP - General Internal Medicine 07/23/15 8 Parisa Stearns [place] [address] [place] [address] PCP - General Nurse Practitioner-Family 11/24/1708/28 Ruth Haque MD [address] [address] [address] [place] [address] Internal Medicine-Gastroenterology 08/15/[address],LD Dietitian 05/09/19 08/20/19 Aliya Green, RN Director Of Recruitment Registered Nurse 08/24/20 08/24/20 documented as of this encounter
--- OUTSIDE RECORDS SUMMARY | 2024-12-25 12:44 | XMS_ITS | Clinical Summary ---
Author Organization [facility] Internal Medicine Address [address] [place] [address] Phone Care Team Providers Care Duplicator Punch Operator Name Role Phone Ruth Haque MD [...] for risk reduction Need IRIS and MICRO [place] cardiac risk 10-20% in next 10 years [...] Cervical polyp 02/11/2014 05/15/2015 Hepatitis 08/15/2012 11/24/2017 Immunizations Immunization Administration Dates Next Due Hep [...] 11/17/2011, 11/17/2011, 05/03/1996 COVID-19 Vaccine ( season) 2024 Influenza Vaccine (#1) 2024 11/09/2015 (Declin ed) Bone Density Screening 10/31/2024 Colon Cancer Screening 05/14/2025 Colonoscopy 05/14/2025 05/15/2015 [...] 30 General 31.5(08/16/19 11:24 PM EDT) No Daryn, Parisa, DISPLAY TRIMMER HEMOGLOBIN A1C < 7.0 Result Component 6.7( 7:36 PM EDT) No Daryn, Parisa, DISPLAY TRIMMER Procedures Procedure Name Priority Date/Time Associated Diagnosis Comments COMPREHENSIVE METABOLIC PANEL Timed 08/20/2020 6:14 AM EDT HEMOGLOBIN A1C Routine 08/15/2020 7:36 PM EDT LIPID SCREEN Routine 08/02/2019 9:18 AM EDT Hyperlipidemia, unspecified hyperlipidemia type MM MAMMO DIGITAL SCREENING W CAD BILAT Routine 03/30/2018 11:15 AM EST Screening mammogram, encounter for DIESEL MACHINIST CYTOLOGY REPORT Routine 05/18/2016 8 :37 AM EDT ALBUMIN/CREATININE RATIO, RANDOM URINE Routine 07/16/2015 10:08 AM EDT Essential hypertension ACUTE HEPATITIS PANEL Routine 11/21/2011 1:54 PM EDT Other abnormal blood chemistry from Last 3 Months or Most Recently Relevant to Health Maintenance Results * (ABNORMAL) COMPREHENSIVE METABOLIC PANEL (08/20/2020 6:14 AM EDT) Sodium 140 136 - 145 mmol/L 08/20/2020 7:01 AM EDT [facility] Potassium 4.0 3.5 - 5.0 mmol/L 08/20/2020 7:01 AM EDT [facility] Chloride 102 98 - 107 mmol/L 08/20/2020 7:01 AM EDT [facility] Total CO2 29 22 - 29 mmol/L 08/20/2020 7:01 AM EDT [facility] Anion Gap 9 7 - 16 mmol/L 08/20/2020 7:01 AM EDT [facility] Calcium 8.6(L) 8.8 - 10.4 mg/dL 08/20/2020 7:01 AM [facility] Glucose Lvl 116(H) 82 - 100 mg/dL 08/20/2020 7:01 AM [facility] BUN 18 8 - 23 mg/dL 08/20/2020 7:01 AM [facility] Creatinine 0.81 0.51 - 1.30 mg/dL 08/20/2020 7:01 AM [facility] Albumin 3.0(L) 3.2 - 4.6 gm/dL 08/20/2020 7:01 AM [facility] Total Protein 6.0(L) 6.4 - 8.3 gm/dL 08/20/2020 7:01 AM [facility] Bili Total 0.9 0.1 - 1.3 mg/dL 08/20/2020 7:01 AM [facility] ALT 25 <=41 U/L 08/20/2020 7:01 AM [facility] AST 20 <=40 U/L 08/20/2020 7:01 AM [facility] Alk Phos 55 36 - 123 U/L 08/20/2020 7:01 AM [facility] GFR Afr Am 91 >=60 mL/min/1.7 3 m2 08/20/2020 7:01 AM [facility] GFR Non Afr Am 79 >=60 mL/min/1.7 3 m2 08/20/2020 7:01 AM [facility] Comment: This estimated GFR was calculated [...] Mohr DO CHEMISTRY ORDERABLES Fin al Result Performing Organization Address [facility] Co de Phone Number [facility] [address] [place] [address] [place] [address] * (ABNORMAL) HEMOGLOBIN A1C (08/15/2020 7:36 PM EDT) Hgb A1C 6.7(H) 4.2 - 5.6 % 08/16/2020 12:11 PM EDT [facility] Est. Avg Glucose 146 mg/dL 08/16/2020 12:11 PM EDT [facility] Blood VENOUS BLOOD / Unknown Venipuncture / Unknown 08/15/2020 7:36 PM EDT 08/15/2020 7:41 PM EDT Narrative [facility] - 08/16/2020 12:11 PM EDT REFERENCE RANGE: Normal: 4.0-5.6% Pre-diabetes: 5.7-6.4% Provisional diagnosis of diabetes: >6.4% Hgb F>10% and anything which shortens red cell survival, such as hemolytic anemia, or unstable hemoglobin variants such as HbSS, HbSC, or HbCC, will lower the HbA1c value associated with a given level of glycemic control. Lebron Mohr DO CHEMISTRY ORDERABLES Fin al Result Performing Organization Address [facility] Co de Phone Number [facility] [address] [place] [address] , [place] [address] * (ABNORMAL) LIPID SCREEN (08/02/2019 9:18 AM EDT) Cholesterol 271(H) <200 mg/dL 08/02/2019 5:14 PM EDT [facility] Comment: < 200 Desirable 200 - 239 Borderline High >= 240 High Triglyceride 287(H) <150 mg/dL 08/02/2019 5:14 PM EDT [facility] Comment: < 150 Normal 150 - 199 Borderline High 200 - 499 High >= 500 Very High HDL 44 >=40 mg/dL 08/02/2019 5:14 PM EDT [facility] Comment: > 60 Optimal 40 - 60 Acceptable < 40 Low LDL Calculated 170(H) <100 mg/dL 08/02/2019 5:14 PM EDT [facility] Comment: < 100 Optimal 100 - 129 Near or above optimal 130 - 159 Borderline High 160 - 189 High >= 190 Very High Non-HDL-C Calculated 227(H) <=129 mg/dL 08/02/2019 5:14 PM EDT [facility] Comment: <130 Desirable 130-159 Above Desirable 160-189 Borderline High 190-219 High >= 220 Very High Fasting Specimen? Yes None 020 5:14 PM EDT [facility] Blood VENOUS BLOOD / Unknown Venipuncture / Unknown 08/02/2019 9:18 AM EDT 08/02/2019 9:22 AM EDT Parisa Stearns DISPLAY TRIMMER CHEMISTRY ORDERABLES Final Result [facility] [address] [facility] , [place] [address] * MM MAMMO DIGITAL SCREENING W CAD BILAT (03/30/2018 11:15 AM EST) Anatomical Region Laterality Modality Breast Bilateral Mammography 03/30/2018 11:4 4 AM EST Impressions 03/30/2018 11:44 AM EST Negative ([id number]) ~ RECOMMENDATION: Routine screening mammogram in 1 [...] for screening mammogram for malignant neoplasm of [id number] ~ MM MAMMO DIG SCREEN CAD BILAT [...] for screening mammogram for malignant neoplasm of [id number] ~ MM MAMMO DIG SCREEN CAD BILAT Bilateral CC and MLO view(s) were taken. There are scattered fibroglandular densities. Prior study comparison: Compared with prior studies the most recentbeing : No prior studies. Minor asymmetry in breast architecture without discrete mass or architectural distortion. No suspicious calcifications. ~ IMPRESSION: Negative ([id number]) ~ RECOMMENDATION: Routine screening mammogram in 1 [...] IMG MAMMOGRAPHY O RDERABLES Final Result * DIESEL MACHINIST CYTOLOGY REPORT (05/18/2016 8:37 AM EDT) Senior Chemical Engineer Cytology Report PATIENT NAME:DANIELLE SUMMERS Senior Chemical Engineer Cytology Report Accession Number Collected Date/Time Received Date/Time [id number] 05/18/16 08:37 EDT 05/18/16 18:37 EDT GY [...] before definitive therapy. Processed using the ThinPrep Controller Operations And Hr Manager automated cytology screening device ([employer]). Machinist Apprentice Wood: DT 05/23/2016 Completed by: SHY Gonzalez (Electronically signed by) 05/23/2016 [facility] 05/18/2016 8:37 AM EDT us Cynthia Aleman MD PATHOLOGY ORDERAB LES Final Result [facility] [address] [place] [address] * MICROALBUMIN/CREATININE RATIO URINE (07/16/2015 10:08 AM EDT) Pathologist [facility] Urine Albumin <12.0 mg/L [facility] Urine Creatinine 58.4 mg/dL [facility] Ur Albumin/Creat See Footnote 0 - 30 [facility] Comment:Unable to calculate due to value outside linearity. Urine specimen (specimen) UPPER LIMB STRUCTURE / Unknown 07/16/2015 10:08 AM EDT 07/16/2015 3:54 PM EDT us Payton NIETO URINE ORDERABLES Final Result Performing Organization Address [facility]/ZIP Co de Phone Number [facility] [address] [place] [address] * ACUTE HEPATITIS PANEL (11/21/2011 1:54 PM EDT) Pathologist [facility] Hep Bs Ag Negative Negative [facility] Hep B Core IgM Negative Negative [facility] Hep A IgM Negative Negative [facility] Hep C Ab Negative Negative [facility] Blood specimen (specimen) UPPER LIMB STRUCTURE / Unknown 11/21/2011 1:54 PM EDT 11/21/2011 6:43 PM EDT us Petr Wadsworth DO CHEMISTRY ORDERABLES Edited Performing Organization Address City/[facility]/ZIP Co de Phone Number [facility] [address] [place] [address] from Last 3 Months or Most Recently Relevant to Health Maintenance Insurance ALLIED BENEFITS SOLUTION Advance Directives For more information, please contact: [phone] * Full Code (Latest Code Status on File) Date Activated Date Inactivated Comments 08/16/2020 7:49 AM 08/21/2020 2:05 PM Care Teams Duplicator Punch Operator Relationship Specialty Start Date End Date Ruth Haque MD Internal Medicine-Gastroenterology 08/15/12
== END 2024-12-24 23:59 | disposition home or self-care (01) ==
LOC: LAB.DROPOF 12-25 12:42
PROVIDERS: PCP Nurse Practitioner; Visit Provider Nurse Practitioner
DX: E78.5 Hyperlipidemia, unspecified (principal); E11.9 Type 2 diabetes mellitus without complications; I10 Essential (primary) hypertension; E03.9 Hypothyroidism, unspecified
CPT/HCPCS: 80053; 80061; 83036; 84439; 84443